=== PATIENT | female | born 1970 | race Caucasian/White ===

== ENCOUNTER 2016-04-26 23:21 | Emergency (ER) | payer OTHER ==
[~2016-04-26] VITALS: Ht 167.6 cm; Wt 52.7 kg
[~2016-04-26 23:21] MED LIST: KLON2TAB PO; LITH300C2 PO
[2016-04-26 23:28] VITALS: BP 132/94; PULSE 85; RESP 18; TEMP 98.8; O2SAT 100
[2016-04-26] MEDS ORDERED: LITH150C PO (23:45)
--- NOTE | 2016-04-27 00:24 | PD ---
HPI Chief Complaint: Skin Problem Time Seen by Provider: 00:11 Travel History International Travel<30 days: No Contact w/Intl Traveler<30days: No Traveled to known affect area: No History of Present Illness HPI The patient is a 45-year-old female with a history of anxiety and bipolar disorder who was cleaning house all day using household bleach. She was not wearing gloves. She noticed that she had a burning sensation and slight redness to both hands 2 hours prior to coming into the emergency department. This redness has almost totally resolved. The hands are no longer burning. PFSH Past Medical History Bipolar Disorder: Yes Anxiety: Yes Diminished Hearing: No Headaches: Yes Tetanus Vaccination: < 5 Years Influenza Vaccination: No ?: Not LMP: on it Past Surgical History Section: Yes (x2) Gynecologic Surgery: Yes ( X2) Other Surgery: Yes (BREAST AUGMENTATION) Social History Alcohol Use: No Tobacco Use: No Substance Use: No Allergies-Medications (Allergen,Severity, Reaction): Coded Allergies: Penicillin (Verified Allergy, Severe, UNK REACTION, 04/26/16) Reported Meds & Prescriptions Reported Meds & Active Scripts Active Reported [place] Carbonate 150 Mg Cap 150 Mg PO BID Review of Systems Except as stated in HPI: all other systems reviewed are Neg Physical Exam Narrative GENERAL: Well-nourished, well-developed patient. SKIN: Warm and dry. There is a barely perceptible erythema between the fingers of the hands. The hands otherwise look normal and there is no swelling. HEAD: Normocephalic. EYES: No scleral icterus. No injection or drainage. NECK: Supple, trachea midline. No JVD or lymphadenopathy. CARDIOVASCULAR: Regular rate and rhythm without murmurs, gallops, or rubs. RESPIRATORY: Breath sounds equal bilaterally. No accessory muscle use. GASTROINTESTINAL: Abdomen soft, non-tender, nondistended. MUSCULOSKELETAL: No cyanosis, or edema. BACK: Nontender without obvious deformity. No CVA tenderness. Data Data Last Documented VS Vital Signs Date Time Temp Pulse Resp B/P Pulse Ox O2 Delivery O2 Flow Rate FiO2 04/26/16 23:28 98.8 85 18 132/94 100 MDM Medical Decision Making Medical Screen Exam Complete: Yes Emergency Medical Condition: Yes Medical Record Reviewed: Yes Differential Diagnosis Allergic reaction, chemical irritation of skin over the hands, cellulitis unlikely Narrative Course The patient appears to have a chemical dermatitis of the hands from the household bleach. This is very minimal and should respond to hand cream. She also should use gloves when using bleach. Diagnosis Primary Impression: Chemical dermatitis Additional Instructions: As we discussed, avoid bleach contact to the hands. Simple hand creams containing glycerin should help resolve the minimal irritation on the hands. Med/Other Pt SpecificInfo: No Change to Meds Disposition: 01 DISCHARGE HOME Condition: Stable Alex Correa MD Apr 27, 2016 00:24
== END 2016-04-27 00:30 | disposition home or self-care (01) ==
LOC: PHED 23:21
DX: L24.0 Irritant contact dermatitis due to detergents (principal)
CPT/HCPCS: 99282

== ENCOUNTER 2016-10-15 05:23 | Emergency (ER) | payer OTHER ==
[~2016-10-15] VITALS: Ht 167.6 cm; Wt 53.0 kg
[~2016-10-15 05:23] MED LIST changes: -KLON2TAB PO; +LITH150C PO; -LITH300C2 PO
[2016-10-15 05:30] VITALS: BP 131/75; PULSE 82; RESP 14; TEMP 98.6; O2SAT 100
--- NOTE | 2016-10-15 06:03 | PD ---
HPI Chief Complaint: ENT Complaint Time Seen by Provider: 05:59 Travel History International Travel<30 days: No Contact w/Intl Traveler<30days: No Traveled to known affect area: No History of Present Illness HPI The patient is a 46-year-old female that complains of a bump on her left tongue for 2 hours. She does have a history of bipolar disorder and is on lithium. She denies any wheezing or difficulty breathing. She denies any fever. PFSH Past Medical History Bipolar Disorder: Yes Anxiety: Yes Diminished Hearing: No Headaches: Yes Tetanus Vaccination: > 5 Years Influenza Vaccination: No ?: Not Past Surgical History Section: Yes (x2) Gynecologic Surgery: Yes ( X2) Other Surgery: Yes (BREAST AUGMENTATION) Social History Alcohol Use: No Tobacco Use: No (quit 2 mo ago) Substance Use: No Allergies-Medications (Allergen,Severity, Reaction): Coded Allergies: Penicillin (Verified Allergy, Severe, UNK REACTION, 10/15/16) Reported Meds & Prescriptions Reported Meds & Active Scripts Active Reported [place] Carbonate 150 Mg Cap 150 Mg PO BID Review of Systems Except as stated in HPI: all other systems reviewed are Neg Physical Exam Narrative GENERAL: Well-nourished, well-developed patient who speaks rapidly and appears to be in a manic phase but otherwise no acute distress. Specifically, no respiratory distress or airway obstruction. SKIN: Focused skin assessment warm/dry. HEAD: Normocephalic. EYES: No scleral icterus. No injection or drainage. NECK: Supple, trachea midline. No JVD or lymphadenopathy. CARDIOVASCULAR: Regular rate and rhythm without murmurs, gallops, or rubs. RESPIRATORY: Breath sounds equal bilaterally. No accessory muscle use. GASTROINTESTINAL: Abdomen soft, non-tender, nondistended. MUSCULOSKELETAL: No cyanosis, or edema. BACK: Nontender without obvious deformity. No CVA tenderness. ENT: The tongue appears normal and I cannot find any swelling or lump on the tongue. The tongue is symmetrical. DENTAL: No loose or chipped teeth. No malocclusion. The patient's teeth are in excellent shape and there is no abscess or dental tenderness. Data Data Last Documented VS Vital Signs Date Time Temp Pulse Resp B/P Pulse Ox O2 Delivery O2 Flow Rate FiO2 10/15/16 05:30 98.6 82 14 131/75 100 MDM Medical Decision Making Medical Screen Exam Complete: Yes Emergency Medical Condition: Yes Medical Record Reviewed: Yes Differential Diagnosis Allergic reaction, bite beth tongue, dental infection swelling of tongue, angioedema Narrative Course I cannot find any lump or swelling of the tongue. There is certainly no airway obstruction. I cannot find any evidence for allergic reaction at this time. The patient does appear somewhat manic and talks rapidly. Diagnosis Primary Impression: Mild tongue swelling Additional Instructions: Follow-up with your primary care physician. Return to the emergency department if you have severe swelling of the tongue. Disposition: 01 DISCHARGE HOME Condition: Stable Alex Correa MD Oct 15, 2016 06:03
== END 2016-10-15 06:13 | disposition home or self-care (01) ==
LOC: PHED 05:23
DX: R22.0 Localized swelling, mass and lump, head (principal)
CPT/HCPCS: 99281

== ENCOUNTER 2017-05-23 21:30 | Emergency (ER) | payer OTHER ==
[~2017-05-23] VITALS: Ht 167.6 cm; Wt 53.1 kg
[2017-05-23 21:34] VITALS: BP 134/85; PULSE 87; RESP 18; TEMP 97.9; O2SAT 100
--- NOTE | 2017-05-23 22:02 | PD ---
HPI Chief Complaint: Abnormal Results Time Seen by Provider: 21:55 Travel History International Travel<30 days: No Contact w/Intl Traveler<30days: No Traveled to known affect area: No History of Present Illness HPI The patient was seen and examined in the presence of the nurse. This patient complains of some vague symptoms. For one year she felt like she was living outside of her body. She complains of total body numbness. She follows with Dr. Graham. No acute neurologic change such as muscle weakness or sensory loss on one side. No injury or fever PFSH Past Medical History Bipolar Disorder: Yes Anxiety: Yes Diminished Hearing: No Headaches: Yes ?: Not LMP: 05-10-17 Past Surgical History Section: Yes (x2) Gynecologic Surgery: Yes ( X2) Other Surgery: Yes (BREAST AUGMENTATION) Social History Alcohol Use: No Tobacco Use: No (quit 2 mo ago) Substance Use: No Allergies-Medications (Allergen,Severity, Reaction): Coded Allergies: penicillin G (Unverified Allergy, Severe, UNK REACTION, 05/23/17) Reported Meds & Prescriptions Reported Meds & Active Scripts Active Reported [place] Carbonate 150 Mg Cap 150 Mg PO BID Review of Systems General / Constitutional: No: Fever HENT: No: Headaches Cardiovascular: No: Chest Pain or Discomfort Physical Exam Narrative CARDIOVASCULAR: Regular rate and rhythm without murmur. Extremities showed no edema or varicosities. RESPIRATORY: Respiratory effort unlabored, no retractions or use of accessory muscles. Breath sounds are clear and symmetric. GASTROINTESTINAL: Abdomen soft, non-tender, nondistended. Positive bowel sounds. No hepato-splenomegaly, or palpable masses. No guarding. Data Data Last Documented VS Vital Signs Date Time Temp Pulse Resp B/P (MAP) Pulse Ox O2 Delivery O2 Flow Rate FiO2 05/23/17 21:34 97.9 87 18 134/85 (101) 100 MDM Medical Decision Making Medical Screen Exam Complete: Yes Emergency Medical Condition: Yes Medical Record Reviewed: Yes Differential Diagnosis Somatoform disorder, depression , anxiety Narrative Course I have reviewed the patient's electronic medical record. Patient looks clinically well with normal exam and normal vitals She has several somatic complaints that are difficult to explain objectively Recommend she follow up primary care Diagnosis Primary Impression: Numbness Additional Instructions: The patient was advised to follow up with their physician and return if they worsen. Med/Other Pt SpecificInfo: Other Disposition: 01 DISCHARGE HOME Condition: Stable Ang Ballard MD May 23, 2017 22:02
== END 2017-05-23 22:04 | disposition home or self-care (01) ==
LOC: PHED 21:30
DX: R20.0 Anesthesia of skin (principal); F31.9 Bipolar disorder, unspecified; F41.9 Anxiety disorder, unspecified; Z88.0 Allergy status to penicillin; Z79.899 Other long term (current) drug therapy
CPT/HCPCS: 99282